=== PATIENT | male | born 2005 | race Asian ===

== ENCOUNTER 2024-08-17 20:56 | Emergency (ER) | payer OTHER ==
[~2024-08-17] VITALS: Ht 170.2 cm; Wt 59.1 kg
[2024-08-17 21:05] VITALS: BP 144/74; PULSE 83; RESP 16; TEMP 97.9; O2SAT 100
[2024-08-17] MEDS: PERTUSS(ACELL),DIPH,TET/PF 0.5 ML SYRINGE [ADULT] IM. ONE (22:56)
== END 2024-08-18 00:26 | disposition home or self-care (01) ==
LOC: EMS 20:56
DX: S61.217A Laceration without foreign body of left little finger without damage to nail, initial encounter (principal); W26.0XXA Contact with knife, initial encounter; Y93.89 Activity, other specified; Y92.89 Other specified places as the place of occurrence of the external cause; Y99.8 Other external cause status
CPT/HCPCS: 12001; 90471; 90715; 99283